=== PATIENT | female | born 1995 | race Two or more races ===

== ENCOUNTER 2021-01-12 02:54 | Inpatient (IN) | payer MEDICAID, OTHER ==
[~2021-01-12] VITALS: Ht 152.4 cm; Wt 83.0 kg
[2021-01-12] MEDS ORDERED: HYDROCODONE/ACETAMINOPHEN 5/325MG TABLET PO ONE (04:00)
[2021-01-12] MEDS ORDERED: SODIUM CHLORIDE 0.9% 1,000 ML IV ONE ×2 (04:15→07:00)
[2021-01-12 04:18] LABS: BASOPHILS % 0.3 % (0.0-2.0); EOSINOPHILS % 0.4 % (0.0-5.0); HEMATOCRIT. 28.9 % (36.0-48.0); LYMPHOCYTES % 17.5 % (20.0-50.0); MEAN CORPUSCULAR HEMOGLOBIN 31.4 pg (28.0-32.0); MEAN CORPUSCULAR VOLUME 90.9 fL (81.0-99.0); MONOCYTES % 5.1 % (2.0-8.0); NEUTROPHILS % 76.7 % (40.0-76.0); PLATELET 333 x1000/uL (130-400); RED BLOOD CELL COUNT 3.17 mill/uL (4.2-5.4); RED CELL DISTRIBUTION WIDTH 13.2 % (11.6-14.6)
[2021-01-12 04:22] LABS: CHLORIDE 103 mEq/L (98-107)
[2021-01-12] MEDS ORDERED: IBUPROFEN 400MG TABLET PO PRN (08:15)
[2021-01-12] MEDS ORDERED: IBUPROFEN 800MG TABLET PO PRN (08:15)
[2021-01-12] MEDS ORDERED: BISACODYL 10MG SUPP PR PRN (08:15)
[2021-01-12] MEDS ORDERED: ACETAMINOPHEN WITH CODEINE 300/30MG TABLET PO PRN (08:15)
[2021-01-12] MEDS: DEXT 5%/LR + PITOCIN 20UNITS/L 1,000 ML IV SCH ×3 (08:15→21:51)
[2021-01-12] MEDS ORDERED: METHYLERGONOVINE MALEATE 0.2 MG/ML IM PRN (08:30)
[2021-01-12 11:00] VITALS: BP 108/61
[2021-01-12] MEDS: SIMETHICONE 80MG TABLET CHEW PO SCH ×3 (14:22→20:11)
[2021-01-12] MEDS: MAGNESIUM/ALUMINUM HYDROXIDE/SIMETHICONE 30ML UDC PO SCH ×3 (14:23→20:11)
[2021-01-12 16:00] VITALS: BP 110/71
[2021-01-12 20:00] VITALS: BP 109/59
[2021-01-12] MEDS: DOCUSATE SODIUM 100MG CAPSULE PO SCH (20:11)
[2021-01-13] VITALS (16 sets, daily range): BP systolic 96–123; BP diastolic 46–71
[2021-01-13] MEDS: DEXT 5%/LR + PITOCIN 20UNITS/L 1,000 ML IV SCH (06:17)
[2021-01-13 06:59] LABS: BASOPHILS % 0.6 % (0.0-2.0); EOSINOPHILS % 0.6 % (0.0-5.0); LYMPHOCYTES % 30.8 % (20.0-50.0); MEAN CORPUSCULAR HEMOGLOBIN 31.8 pg (28.0-32.0); MEAN PLATELET VOLUME 7.6 fl (7.4-10.4); PLATELET 214 x1000/uL (130-400); RED BLOOD CELL COUNT 1.47 mill/uL (4.2-5.4); RED CELL DISTRIBUTION WIDTH 13.4 % (11.6-14.6)
[2021-01-13 07:09] LABS: HEMATOCRIT. 13.5 % (36.0-48.0); HEMOGLOBIN. 4.7 g/dL (12.0-16.0)
[2021-01-13] MEDS: MAGNESIUM/ALUMINUM HYDROXIDE/SIMETHICONE 30ML UDC PO SCH ×4 (08:39→21:36)
[2021-01-13] MEDS: SIMETHICONE 80MG TABLET CHEW PO SCH ×4 (08:39→21:36)
[2021-01-13 17:25] LABS: HEMATOCRIT 24.7 % (36.0-48.0); HEMOGLOBIN 8.2 g/dL (12.0-16.0)
[2021-01-13 17:26] LABS: PROTHROMBIN TIME 10.3 sec (9.6-11.0)
[2021-01-13 20:27] LABS: HEMATOCRIT 27.1 % (36.0-48.0); HEMOGLOBIN 9.1 g/dL (12.0-16.0)
[2021-01-13 20:51] LABS: PROTHROMBIN TIME 10.6 sec (9.6-11.0)
[2021-01-13] MEDS: DOCUSATE SODIUM 100MG CAPSULE PO SCH (21:00)
[2021-01-14] VITALS: BP 115/70
[2021-01-14] MEDS ORDERED: IBUP-2030 PO (00:20)
[2021-01-14 04:00] VITALS: BP 110/75
[2021-01-14 08:00] VITALS: BP 118/81
[2021-01-14] MEDS: SIMETHICONE 80MG TABLET CHEW PO SCH (08:52)
[2021-01-14] MEDS: MAGNESIUM/ALUMINUM HYDROXIDE/SIMETHICONE 30ML UDC PO SCH (08:53)
[2021-01-14 10:11] VITALS: BP 118/81
[2021-01-15] VITALS: BP 97/73
== END 2021-01-14 11:15 | disposition home or self-care (01) | DRG 564 ==
LOC: ER 02:54 → 6EST 08:34 → EDBEDREQSVC 08:37 → ENRESERV 09:02
PROVIDERS: ADMIT Obstetrics & Gynecology; ATTEND Obstetrics & Gynecology
PROC: 30233N1 Transfusion of Nonautologous Red Blood Cells into Peripheral Vein, Percutaneous Approach (ICD-10-PCS; principal; 2021-01-13)
DX: O03.9 Complete or unspecified spontaneous abortion without complication (principal); O99.012 Anemia complicating pregnancy, second trimester; D64.9 Anemia, unspecified; Z3A.15 15 weeks gestation of pregnancy
CPT/HCPCS: 36415; 76801; 80053; 84702; 85014; 85018; 85025; 85049; 85384; 86850; 86900; 86920; 93005; 99285; J2210; J2590; J7030; P9016